=== PATIENT | female | born 1970 | race Caucasian/White ===

== ENCOUNTER 2016-12-13 15:56 | Emergency (ER) | payer OTHER ==
[~2016-12-13] VITALS: Ht 165.1 cm; Wt 54.4 kg
--- NOTE | 2016-12-13 16:15 | NUR ---
at the bedside
--- NOTE | 2016-12-13 16:25 | NUR ---
diluadid administered, lidocaine with epi viaL AT THE BEDSIDE FOR MD TO ADMINISTER, I AND D SET-UP AT THE BEDSIDE.
[2016-12-13] MEDS ORDERED: LIDOCAINE 1%-EPI 1:100,000 20 ML VIAL ONE (16:27)
[2016-12-13] MEDS ORDERED: HYDROMORPHONE 2 MG/1 ML DISP.SYRIN ONE (16:27)
[2016-12-13] MEDS ORDERED: LIDOCAINE 1%-EPI 1:100,000 20 ML VIAL TP ONE (16:30)
[2016-12-13] MEDS ORDERED: HYDROMORPHONE 1 MG/1 ML DISP.SYRIN IM ONE (16:30)
== END 2016-12-13 17:10 | disposition home or self-care (01) ==
LOC: ER 15:58
DX: K61.0 Anal abscess (principal); F32.9 Major depressive disorder, single episode, unspecified; F41.9 Anxiety disorder, unspecified; Z88.2 Allergy status to sulfonamides
CPT/HCPCS: 46050; 96372; 99284; A4217; A4663; J1170; J3490

== ENCOUNTER 2017-04-17 14:59 | Emergency (ER) | payer OTHER ==
[~2017-04-17] VITALS: Ht 165.1 cm; Wt 50.3 kg
[2017-04-17] MEDS ORDERED: TRAZ-147 PO (15:20)
[2017-04-17] MEDS ORDERED: VARE1TAB PO (15:20)
[2017-04-17] MEDS ORDERED: GABA-534 PO (15:20)
[2017-04-17] MEDS ORDERED: BUPR-96 PO (15:21)
--- NOTE | 2017-04-17 16:36 | NUR ---
Patient discharged to home in stable conditon. Written and verbal after care instructions given. Patient verbalizes understanding of instructions.PT WITH SO
== END 2017-04-17 16:37 | disposition home or self-care (01) ==
LOC: ER 15:04
DX: Z76.0 Encounter for issue of repeat prescription (principal); F41.9 Anxiety disorder, unspecified; F31.9 Bipolar disorder, unspecified; Z88.2 Allergy status to sulfonamides; Z88.8 Allergy status to other drugs, medicaments and biological substances
CPT/HCPCS: A4663

== ENCOUNTER 2017-07-17 15:20 | Emergency (ER) | payer OTHER ==
[~2017-07-17] VITALS: Ht 165.1 cm; Wt 46.3 kg
[~2017-07-17 15:20] MED LIST: BUPR-96 PO; GABA-534 PO; TRAZ-147 PO; VARE1TAB PO
--- NOTE | 2017-07-17 15:51 | NUR ---
PT IS IN ROOM 32A. DR ARRIAGA EVALUATED THE PT.
[2017-07-17 16:03] LABS: *BILIRUBIN,URIN NEGATIVE (NEGATIVE); *BLOOD, URINE NEGATIVE (NEGATIVE); *COLOR,URINE YELLOW (YELLOW); *KETONES,URINE NEGATIVE (NEGATIVE); *PROTEIN,URINE NEGATIVE (NEGATIVE); *URINE HCG, QUAL NEGATIVE (NEGATIVE); *UROBILINOGEN,URINE 0.2 E.U./dl (NORMAL); LEUKOCYTE ESTERASE ,URINE 1+ (NEGATIVE); NITRITE, URINE NEGATIVE (NEGATIVE); PH,URINE 5.5 (5.0-8.0); UGLUCOSE NEGATIVE (NEGATIVE)
[2017-07-17 16:04] LABS: *CLARITY,URINE SLIGHTLY HAZY (CLEAR)
[2017-07-17 16:08] LABS: BACTERIA,URINE FEW /HPF (NONE SEEN); MUCUS,URINE FEW /LPF (0-FEW); RBC,URINE 0-3 /HPF (0-3); SQUAMOUS EPITHELIAL CELL,UR MODERATE /HPF (NONE SEEN)
--- NOTE | 2017-07-17 17:25 | NUR ---
PT WAS D/C TO HOME AFTER ER MD RE EVALUATION. D/C INSTRUCTIONS GIVEN TO THE PT.
[2017-07-17 17:26] VITALS: BP 135/81
== END 2017-07-17 17:27 | disposition home or self-care (01) ==
LOC: ER 15:22
DX: N83.201 Unspecified ovarian cyst, right side (principal); F41.9 Anxiety disorder, unspecified; F31.9 Bipolar disorder, unspecified
CPT/HCPCS: 76856; 81001; 84703; 99285; A4663

== ENCOUNTER 2018-06-01 10:26 | Emergency (ER) | payer OTHER ==
[~2018-06-01] VITALS: Ht 165.1 cm; Wt 54.4 kg
[~2018-06-01 10:26] MED LIST changes: -TRAZ-147 PO; +TRAZ-214 PO
[2018-06-01] MEDS ORDERED: LIDOCAINE 1%-EPI 1:100,000 20 ML VIAL TP ONE (10:45)
[2018-06-01] MEDS ORDERED: LIDOCAINE 1%-EPI 1:100,000 20 ML VIAL ONE ×2 (10:45→10:47)
--- NOTE | 2018-06-01 10:45 | NUR ---
PT IN TO RM 2B FOR ABSCESS OF THE RIGHT LOWER BUTTOCK. SEEN BY DR ANDERSON. INCISSION AND DRAINAGE DONE WITH LIDOCAINE 1% ADMINISTERED BY MD AT THE BEDSIDE. TOLERATED WELL. NO APPARENT DISTRESS NOTED. VSS.
--- NOTE | 2018-06-01 11:05 | NUR ---
DISCHARGE INSTRUCTION GIVEN TO THE PT TOGETHER WITH THE PRESCRIPTION. UNDERSTANDS WELL. DRESSING APPLIED AT THE INCISSION SITE. VSS.
--- NOTE | 2018-06-01 11:10 | NUR ---
DISCHARGED AMBULATORY. CONDITION IS STABLE.
[2018-06-01 11:29] VITALS: BP 130/60
== END 2018-06-01 11:10 | disposition home or self-care (01) ==
LOC: ER 10:29
DX: L02.31 Cutaneous abscess of buttock (principal); Z88.2 Allergy status to sulfonamides; Z88.8 Allergy status to other drugs, medicaments and biological substances; Z79.891 Long term (current) use of opiate analgesic; Z79.899 Other long term (current) drug therapy
CPT/HCPCS: 10060; 99283; A4217; A4663; J3490

== ENCOUNTER 2023-03-10 07:23 | Emergency (ER) | payer OTHER ==
[~2023-03-10] VITALS: Ht 162.6 cm; Wt 46.7 kg
[~2023-03-10 07:23] MED LIST changes: -TRAZ-214 PO; +TRAZ-257 PO
[2023-03-10] MEDS ORDERED: CEPH500T PO (07:39)
[2023-03-10] MEDS ORDERED: DOXY150T3 PO (07:39)
--- NOTE | 2023-03-10 07:44 | NUR ---
PT WAS EVALUATED BY DR JIMENEZ. PT WAS D/C'd TO HOME. D/C INSTRUCTIONS GIVEN TO THE PT BY DR JIMENEZ.
[2023-03-10 07:47] VITALS: BP 129/68
== END 2023-03-10 07:48 | disposition home or self-care (01) ==
LOC: ER 07:23
DX: K61.0 Anal abscess (principal); Z88.2 Allergy status to sulfonamides; Z88.8 Allergy status to other drugs, medicaments and biological substances; Z79.2 Long term (current) use of antibiotics; Z79.899 Other long term (current) drug therapy
CPT/HCPCS: A4663

== ENCOUNTER 2024-12-18 08:51 | Emergency (ER) | payer OTHER ==
[~2024-12-18] VITALS: Ht 167.6 cm; Wt 45.8 kg
[~2024-12-18 08:51] MED LIST changes: +CEPH500T PO; +DOXY150T3 PO
[2024-12-18 10:58] VITALS: BP 108/84; O2SAT 100
[2024-12-18 11:23] LABS: *BILIRUBIN,URIN NEGATIVE (NEGATIVE); *BLOOD, URINE 1+ (NEGATIVE); *CLARITY,URINE CLEAR (CLEAR); *COLOR,URINE YELLOW (YELLOW); *KETONES,URINE NEGATIVE (NEGATIVE); *PROTEIN,URINE 2+ (NEGATIVE); *UROBILINOGEN,URINE 0.2 E.U./dl (NORMAL); LEUKOCYTE ESTERASE ,URINE 1+ (NEGATIVE); NITRITE, URINE NEGATIVE (NEGATIVE); PH,URINE 7.5 (5.0-8.0); UGLUCOSE NEGATIVE (NEGATIVE)
[2024-12-18 12:46] LABS: BACTERIA,URINE MANY /HPF (NONE SEEN); SQUAMOUS EPITHELIAL CELL,UR FEW /HPF (NONE SEEN); WBC,URINE TNTC /HPF (0-3)
[2024-12-20 12:08] LABS: *CHLAMYDIA NAA Negative (Negative); *GC NAA Negative (Negative); *TRIC.VAG. NAA Negative (Negative)
== END 2024-12-18 10:58 | disposition home or self-care (01) ==
LOC: ER 08:51
DX: N76.0 Acute vaginitis (principal); F32.A Depression, unspecified; F41.9 Anxiety disorder, unspecified; G47.00 Insomnia, unspecified; Z79.899 Other long term (current) drug therapy; Z88.2 Allergy status to sulfonamides; Z88.7 Allergy status to serum and vaccine
CPT/HCPCS: 87210; 87491; A4606; A4663

== ENCOUNTER 2024-12-22 10:37 | Emergency (ER) | payer OTHER ==
[~2024-12-22] VITALS: Ht 167.6 cm; Wt 44.5 kg
[2024-12-22] MEDS ORDERED: AMOX500C2 PO (11:31)
[2024-12-22] MEDS ORDERED: METR70GE17 VG (11:31)
[2024-12-22 11:45] VITALS: BP 129/88; O2SAT 100
== END 2024-12-22 11:48 | disposition home or self-care (01) ==
LOC: ER 10:37
DX: N76.0 Acute vaginitis (principal); F31.9 Bipolar disorder, unspecified; F41.9 Anxiety disorder, unspecified; Z79.899 Other long term (current) drug therapy; Z88.2 Allergy status to sulfonamides; Z88.7 Allergy status to serum and vaccine
CPT/HCPCS: A4606; A4663